=== PATIENT | female | born 1950 | race Hispanic/Latino ===

== ENCOUNTER → 2019-09-07 | Outpatient (CLI) | payer MEDICARE | END | disposition home or self-care (01) | LOC: SHCH 08:24 | PROVIDERS: ATTEND Internal Medicine Cardiovascular Disease | DX: I87.2 Venous insufficiency (chronic) (peripheral) (principal); R60.9 Edema, unspecified | CPT/HCPCS: 93970 ==

== ENCOUNTER 2020-11-01 06:50 | Day surgery (SDC) | payer MEDICARE ==
[2020-10-28 11:26] LABS: BASOPHILS % (AUTO) 0.5 % (0.0-5.0); EOSINOPHILS % (AUTO) 2.9 % (0.0-8.0); HEMATOCRIT 42.4 % (36-48); MEAN CORPUSCULAR HGB CONC 31.6 g/dL (32.0-36.0); MEAN CORPUSCULAR VOLUME 91.8 fL (79-99); MONOCYTES % (AUTO) 6.9 % (3.0-13.0); NEUTROPHILS % (AUTO) 62.2 % (40.0-77.0); PLATELET COUNT (AUTO) 261 K/uL (130-400); RED BLOOD CELL COUNT(AUTO) 4.62 MIL/uL (4.00-5.50); WHITE BLOOD COUNT (AUTO) 7.9 K/uL (4.8-10.8)
[2020-10-28 11:36] LABS: CREATININE 0.8 mg/dL (0.5-1.5); POTASSIUM 4.5 mmol/L (3.5-5.1)
[2020-10-28 11:50] LABS: INR 0.89 (0.85-1.15); PARTIAL THROMBOPLASTIN TIME 26.4 SEC (26.3-35.5); PROTHROMBIN TIME 9.7 SEC (9.6-11.6)
[~2020-11-01] VITALS: Ht 149.9 cm; Wt 64.7 kg
[2020-11-01] VITALS (9 sets, daily range): BP systolic 86–148; BP diastolic 41–66
[~2020-11-01 06:50] MED LIST: ACET-2247 PO; AEC81 PO; ATOR40TA69 PO; BUDE10.2 IH; METO25TA6 PO; MONT10TA96 PO; SODIUM CHLORIDE 0.9% 1000ML 1,000 ML IV SCH; UMEC62.5 IH
[2020-11-01] MEDS ORDERED: MIDAZOLAM HCL 1 MG/ML 2ML VIAL ONE (08:51)
[2020-11-01] MEDS ORDERED: MEPERIDINE-PF 25 MG/ML SYG ONE (08:51)
[2020-11-01] MEDS ORDERED: LIDOCAINE HCL 2% 20ML ONE ×2 (08:51→09:25)
--- NOTE | 2020-11-01 11:00 | NUR ---
PT BACK IN ROOM POST EPS. LEFT GROIN VENOUS PUNCTURE SITE WITH NO HEMATOMA OR BLEEDING. NO ACUTE DISTRESS NOTED
--- NOTE | 2020-11-01 12:45 | NUR ---
PT ENDORSED TO [facility]
== END 2020-11-01 14:05 | disposition home or self-care (01) ==
LOC: DAH 06:50
PROVIDERS: ATTEND Internal Medicine Cardiovascular Disease
DX: I47.2 Ventricular tachycardia (principal); I25.10 Atherosclerotic heart disease of native coronary artery without angina pectoris; Z95.1 Presence of aortocoronary bypass graft; Z79.01 Long term (current) use of anticoagulants; Z79.82 Long term (current) use of aspirin; Z79.899 Other long term (current) drug therapy
CPT/HCPCS: 36415; 80048; 85025; 85610; 85730; 93005; 93620; A4215; A4216; A4221; A4222; A4223 ×3; A4606; A4663; C1730 ×2; C1894 ×2; J1644; J2175; J2250; J3490 ×2; J7030; 99156; 99157

== ENCOUNTER → 2023-02-18 | Outpatient (CLI) | payer MEDICARE ==
[~2023-02-18] MED LIST changes: +MONT-39 PO; -MONT10TA96 PO; -SODIUM CHLORIDE 0.9% 1000ML 1,000 ML IV SCH
[2023-02-18 16:11] LABS: ALBUMIN 3.6 g/dL (3.5-5.0); CREATININE 0.8 mg/dL (0.5-1.5); POTASSIUM 4.2 mmol/L (3.5-5.1); TOTAL PROTEIN, SERUM 7.6 g/dL (6.0-8.3)
== END | disposition home or self-care (01) ==
LOC: LAB 08:05
PROVIDERS: ATTEND Physician Assistant
DX: I25.10 Atherosclerotic heart disease of native coronary artery without angina pectoris (principal); E78.5 Hyperlipidemia, unspecified
CPT/HCPCS: 36415; 80053; 80061

== ENCOUNTER → 2024-03-26 | Outpatient (CLI) | payer MEDICARE | END | disposition home or self-care (01) | LOC: RAH 09:54 | PROVIDERS: ATTEND Nurse Practitioner Family | DX: Z12.31 Encounter for screening mammogram for malignant neoplasm of breast (principal) | CPT/HCPCS: 77067 ==